=== PATIENT | female | born 1965 ===

== ENCOUNTER 2024-06-14 17:11 | Inpatient (IN) | payer OTHER, SELFPAY ==
--- NOTE | 2024-06-14 17:24 | PTCARENOTE ---
Pt arrived to [facility] via ambulance crew, ambulated to bed independently, gait steady. Full assessment completed. No c/o pain/ nausea at this time. Urinated without issue. Scleras noted to be jaundiced. Bed locked and in the lowest position, safety
maintained. Oriented to room and call ellington. Dr Irving notified of pts arrival, awaiting arrival.
[2024-06-14 17:38] VITALS: BP 103/81
--- NOTE | 2024-06-14 18:44 | HPS.HSE ---
Family Physician
-
Family Physician: Oscar Patiño,DO
Chief Complaint
-
abdominal pain, jaundice
History of Present Illness
59-year-old female past medical history of anxiety, osteoporosis presenting with abdominal bloating discomfort over the past week or so. She recently has been having dark urine and pale-colored stools with constipation. She also noticed that her
breast looked more jaundiced over the past week. She went to her primary care physician who thought that Boniva could have caused this. She denies any fevers or chills. Denies nausea or vomiting. Denies diarrhea.
She denies any history of gallstones or liver problems. She drinks a glass of wine every night.
She was previously taking Aswaganda but has stopped taking this. Denies smoking.
She went to [facility] and had a CT abdomen pelvis which showed choledocholithiasis with CBD stone at the head of the pancreas. She was evaluated by GI recommended for transfer for potential ERCP.
No family history of liver/GI problems.
Medical History
Past Medical History
Past Medical History: Reports Other (anxiety, osteoporosis)
Past Surgical History: Reports None
Social History
Tobacco: Non-smoker
Alcohol: Daily
Drug: None
Family History
Family History: Not pertinent
Allergies / Home Medications
Allergies reflects when Allergies were last updated in [facility].
Home Medications with original date entered in [facility]
Allergy/Medication List:
none
Review of Systems
-
History Source: Patient
A 12 point ROS was completed and negative except as noted: Yes
Constitutional: Reports No Symptoms
EENT: Reports No Symptoms
Respiratory: Reports No Symptoms
Cardiac: Reports No Symptoms
Abdomen/GI: Reports See HPI
: Reports No Symptoms
Musculoskeletal: Reports No Symptoms
Skin: Reports No Symptoms
Neurological: Reports No Symptoms
Endocrine: Reports No Symptoms
Hematologic/Lymphatic: Reports No Symptoms
Psych: Reports No Symptoms
Physical Exam
Vital Signs
Vital Signs
Temp Pulse Resp BP Pulse Ox
98.1 F 55 16 103/81 99
06/14/24 17:38 06/14/24 17:38 06/14/24 17:38 06/14/24 17:38 06/14/24 17:38
Physical Exam
General: Well Developed, Well Nourished and No Apparent Distress
HEENT: NormoCephalic, Moist mucous membranes, Atraumatic and Other (jaundice )
Respiratory: Clear
Cardiac: S1/S2 and Regular Rhythm; No Murmur or Rub
GI: Soft, Non Tender, Non Distended and Normal Bowel Sounds; No Organomegaly
Rectal: Deferred by Provider
Musculoskeletal: No Clubbing, No Cyanosis and No Edema
Skin: No Rash
Neuro: Nonfocal/grossly intact
Data Reviewed
-
Lab Data: Labs Reviewed by me
Old Records: Reviewed
Impression/Plan
-
IMPRESSION:
PLAN:
# Transaminitis/hyperbilirubinemia secondary to choledocholithiasis
-CT disk in the chart and needs to be uploaded
-N.p.o. past midnight
-Clinically appears quite well without any signs of sepsis
-Transferred here for consideration of ERCP
-GI consulted
Anxiety
Osteoporosis
-On Boniva
Full code
DVT prophylaxis�heparin
N.p.o. past midnight
[2024-06-14] MEDS: HEPARIN 5000 UNITS SC (20:29)
[2024-06-14 23:57] VITALS: BP 139/87
[2024-06-15] VITALS (11 sets, daily range): BP systolic 114–130; BP diastolic 63–78
[2024-06-15 06:49] LABS: % Eosinophils 4.8 % (0-6); % Immature Granulocytes 0.3 % (0-0.5); % Lymphocytes 23.8 % (20.5-51.1); % Monocytes 13.6 % (1.7-9.3); % Neutrophils 55.5 % (42.2-75.2); Absolute Basophils 0.1 10^3/uL (0-0.2); Absolute Eosinophils 0.2 10^3/uL (0-0.7); Absolute Lymphocytes 0.8 10^3/uL (1.2-3.4); Absolute Monocytes 0.5 10^3/uL (0.1-0.6); Hematocrit 36.8 % (37.0-47.0); Hemoglobin 12.6 g/dL (12.0-16.0); Mean Corp Hgb Conc. 34.2 g/dL (33.0-37.0); Mean Corpuscular Hgb 31.2 pg (27.0-31.0); Mean Corpuscular Volume 91.1 fL (81.0-99.0); Nucleated Red Blood Cells % 0 %; Platelet Count 241 10^3/uL (130-400); Red Blood Cell Count 4.04 10^6/uL (4.20-5.40); Red Cell Dist. Width 13.3 % (11.5-14.5); White Blood Cell Count 3.5 10^3/uL (4.8-10.8)
--- NOTE | 2024-06-15 07:02 | CON.GI ---
Consultation
-
Date/Time Consultation Performed: 06/15/24
Performing Provider: Jonny Dial MD
Reason for Consultation: jaundice
Medical History
Chief Complaint / HPI
Chief Complaint: Jaundice/abdominal discomfort
History of Present Illness:
The patient is a 59-year-old female with past medical history as noted who presents with increasing jaundice and abdominal discomfort. The symptoms started several weeks ago, initially after having a hamburger, with some upset stomach feeling.
Over the past couple of weeks she has had more vague abdominal symptoms, with constipation and bloating, with decreased appetite. She noticed that her stools were very light color, and went to her PCP though thought this may have been food related.
She then noticed that she was having dark urine and became jaundice, and went to the emergency room yesterday at [facility] where she had a CT scan and transferred to [place]. Unfortunately, we do not have any further records this morning.
The CT scan is still not loaded into the system and have no labs from [facility]. By report there was a CBD stone, though again I do not have the report yet. She otherwise has no other significant medical issues except for anxiety usually
related to healthcare related topics. She denies any chest pain or shortness of breath. She drinks rare alcohol and denies any other hepatotoxic medications.
Past Medical History
Past Medical History: Other (Anxiety, osteoporosis)
Past Surgical History: Other (Tubal ligation)
Social History
Tobacco: Non-Smoker
Alcohol: Occasional
Family History
Family History: Reviewed & Not Pertinent
Allergies / Home Medications
Allergy/AdvReac Type Severity Reaction Status Date / Time
amoxicillin AdvReac Intermediate SEE COMMENT Verified 06/14/24 20:05
�Medication �Instructions �Recorded
Multi For Her PO DAILY 06/14/24
calcium citrate 200 mg PO DAILY 06/14/24
ibandronate 2.5 mg tablet 150 mg PO QMONTH 06/14/24
psyllium seed (sugar) oral powder 1 tbsp PO DAILY 06/14/24
Review of Systems
-
All other systems: A 12 pt ROS was Negative except as stated above in HPI
Vital Signs
Temp Pulse Resp BP Pulse Ox
97.8 F 54 18 139/87 98
06/14/24 23:57 06/14/24 23:57 06/14/24 23:57 06/14/24 23:57 06/14/24 23:57
Physical Exam
Exam
General: NAD, jaundice
HEENT: MMM, icteric, no lymphadenopathy
Heart: Regular, no murmurs
Lungs: CTA bilaterally
Abdomen: normal bowel sounds, soft, no tenderness, no rebound or guarding, no masses, bruits or ascites
Extremeties: no edema
Skin: no rashes
Results
WBC 3.5 10^3/uL (4.8-10.8) L 06/15/24 04:40
Hgb 12.6 g/dL (12.0-16.0) 06/15/24 04:40
Hct 36.8 % (37.0-47.0) L 06/15/24 04:40
MCV 91.1 fL (81.0-99.0) 06/15/24 04:40
Plt Count 241 10^3/uL (130-400) 06/15/24 04:40
Absolute Neuts (auto) 2.0 10^3/uL (1.4-6.5) 06/15/24 04:40
Diagnostic Image Results:
Prior GI Procedures:
EGD:
Colonoscopy:
Assessment / Plan
-
1. Jaundice: With by report CBD stone, though again I do not have her CT scan yet for review. Other reasons for obstruction including malignancy are possible though seem less likely. Again, there was report of CBD obstruction making other
underlying liver disease as a cause of jaundice less likely. At this point we will check CT scan results and await morning labs. Pending this may need MRI for further clarification, and pending all of the above possible ERCP or EUS/ERCP today.
Would continue supportive care for now, but keep n.p.o. in case of possible procedures.
-
-
Thank you for consultation and allowing me to participate in the patient's care. Please call the mission analyst GI physician during the after hours with any questions or concerns.
[2024-06-15 07:31] LABS: ALT (SGPT) 560 U/L (0-35); AST (SGOT) 287 U/L (14-36); Alkaline Phosphatase 288 U/L (38-126); Blood Urea Nitrogen 10 mg/dl (7-17); Carbon Dioxide 26 mmol/L (22-30); Chloride 101 mmol/L (98-107); Glucose 99 mg/dl (70-99); Potassium 4.2 mmol/L (3.5-5.1); Sodium 138 mmol/L (135-145); Total Protein 6.5 g/dl (6.3-8.2); eGFR > 60.00
--- NOTE | 2024-06-15 07:40 | W.PN.HOSP.TC ---
Today's Communication/Plan
-
MRCP +/- ERCP/EUS
Assessment / Plan
Assessment / Plan
Physical exam:
General: Well Developed, Well Nourished and No Apparent Distress. Jaundice
HEENT: Normocephalic, Atraumatic and Moist Mucous Membranes. Icterus
Respiratory: Clear to Auscultation; Negative Wheezes, Rales or Rhonchi
Cardiac: Regular Rhythm and S1/S2
GI: Soft, Nontender and Nondistended
Musculoskeletal: No Clubbing, No Cyanosis and No Edema
Neuro: Awake, Alert and Oriented
Psych: Calm
A/P:
Elevated LFTs:
Trend LFTs
Reviewed CT of the abdomen and pelvis report.
Keep n.p.o.
IV fluids
GI consult appreciated
Hold off on antibiotics but if spikes fevers consider antibiotic coverage
Work up in progress as below
Plan for either MRCP +/- ERCP/EUS
Anxiety:
Discussed with patient and she typically tries without medications but she took some Xanax prior to admission and she feels her anxiety is pretty high.
Will keep her on Xanax low-dose as needed
Leukopenia:
Monitor trend
Osteoporosis:
Biphosphonate as outpatient
DVT prophylaxis:
Heparin SQ
CODE STATUS:
Full code
Anticipated Discharge: 24 - 48 hours
Subjective/Interval History
-
Date of Service: June 15, 2024
Patient denies abdominal pain nausea vomiting. Remains afebrile.
Objective Data
-
Labs:
Laboratory Results
06/15/24
04:40
WBC 3.5 L
Hgb 12.6
Hct 36.8 L
Plt Count 241
Sodium 138
Potassium 4.2
Chloride 101
Carbon Dioxide 26
BUN 10
Creatinine 0.5 L
Glucose 99
Calcium 9.0
Total Bilirubin 7.0 H
AST 287 H
ALT 560 H*
Alkaline Phosphatase 288 H
Vital Signs:
Vital Signs
Temp Pulse Resp BP Pulse Ox
97.8 F 54 18 139/87 98
06/14/24 23:57 06/14/24 23:57 06/14/24 23:57 06/14/24 23:57 06/14/24 23:57
I&O
06/14/24 06/15/24 06/16/24
06:59 06:59 06:59
Intake Total 600 / 600
Balance 600 / 600
[2024-06-15] MEDS: NSS 1000 IV (08:07)
[2024-06-15] MEDS: HEPARIN 5000 UNITS SC ×2 (08:07→19:49)
[2024-06-15 08:16] LABS: Lipase 225 U/L (23-300)
--- NOTE | 2024-06-15 08:46 | W.PN.UPDATE ---
Update Note
Progress Note Update
We did receive records from [facility], I reviewed CT report that showed biliary duct dilation, though not measured, along with pancreatic duct dilation. CT with IV contrast did not show any obvious mass, though is concerned given imaging and
history. I discussed with the patient, will plan MRI today. Pending results of this EUS/ERCP, though may be given availability.
--- NOTE | 2024-06-15 08:56 | W.PN.UPDATE ---
Update Note
Progress Note Update
I discussed with Dr. Yeung, there is a possibility of EUS/ERCP today pending schedule. Will keep n.p.o. for now.
[2024-06-15 09:22] LABS: Direct Bilirubin 5.7 mg/dl (0.0-0.4)
--- NOTE | 2024-06-15 10:42 | CM ---
Met with pt at bedside
Transfer from [facility] - for ERCP
Pt reports she lives alone in a 2 story home;2 steps to enter, 13 steps to 2nd fl
Independent, employed FT, drives
DME - none
SNF/HH - no past hx
Has ride at discharge
PCP - Oscar Patñio
Pharm - [facility] or [facility]
Plan - anticipate home no needs
[2024-06-15] MEDS: SUBLIMAZE 50 MCG IV (17:57)
[2024-06-15] MEDS: ZOFRAN 4 MG IV (17:59)
[2024-06-15] MEDS: XANAX 0.25 MG PO (22:50)
[2024-06-16 03:00] VITALS: BP 123/67
[2024-06-16] MEDS: ULTRAM 25 MG PO (03:03)
[2024-06-16 05:56] LABS: % Basophils 0.5 % (0-2); % Eosinophils 0.2 % (0-6); % Immature Granulocytes 0.3 % (0-0.5); % Lymphocytes 14.6 % (20.5-51.1); % Monocytes 8.5 % (1.7-9.3); % Neutrophils 75.9 % (42.2-75.2); Absolute Lymphocytes 0.9 10^3/uL (1.2-3.4); Absolute Monocytes 0.5 10^3/uL (0.1-0.6); Absolute Neutrophils 4.5 10^3/uL (1.4-6.5); Hematocrit 37.3 % (37.0-47.0); Hemoglobin 12.8 g/dL (12.0-16.0); Mean Corp Hgb Conc. 34.3 g/dL (33.0-37.0); Mean Corpuscular Hgb 31.2 pg (27.0-31.0); Mean Platelet Volume 12.2 fL (7.4-10.4); Nucleated Red Blood Cells % 0 %; Platelet Count 247 10^3/uL (130-400); Red Cell Dist. Width 13.2 % (11.5-14.5); White Blood Cell Count 5.9 10^3/uL (4.8-10.8)
[2024-06-16 06:38] LABS: ALT (SGPT) 547 U/L (0-35); AST (SGOT) 253 U/L (14-36); Albumin 3.9 g/dl (3.5-5.0); Alkaline Phosphatase 285 U/L (38-126); Blood Urea Nitrogen 13 mg/dl (7-17); Calcium 8.8 mg/dl (8.4-10.2); Carbon Dioxide 26 mmol/L (22-30); Chloride 99 mmol/L (98-107); Glucose 100 mg/dl (70-99); Potassium 4.4 mmol/L (3.5-5.1); Sodium 135 mmol/L (135-145); Total Bilirubin 3.3 mg/dl (0.2-1.3); Total Protein 6.3 g/dl (6.3-8.2); eGFR > 60.00
[2024-06-16 07:00] VITALS: BP 123/66
--- NOTE | 2024-06-16 07:16 | W.PN.GI.CBS2 ---
Today's Communication / Plan
-
Please see assessment and plan for details.
Assessment / Plan
-
1. Pancreatic mass: With dilated CBD and PD, though no signs of locally advanced or distant metastasis, status post EUS/FNA and ERCP yesterday with plastic pigtail stent, overall doing well, with no signs of pancreatitis. Preliminary cytology was
suspicious for malignancy. I discussed with the patient at length. At this point she is doing okay, LFTs improving. If she tolerates liquids for breakfast and is okay to DC from GI standpoint. Dr. Yeung will call with pathology when finalized.
Subjective
Subjective
Date of Service: June 16, 2024
Patient feeling okay, some mild epigastric discomfort, though no vomiting, severe pain, fever or chills.
Objective
Data Reviewed
Laboratory Data:
Laboratory Results
06/16/24 04:16
06/16/24 04:16
Laboratory Results
Total Bilirubin 3.3 mg/dl (0.2-1.3) H D 06/16/24 04:16
AST 253 U/L (14-36) H 06/16/24 04:16
ALT 547 U/L (0-35) H* 06/16/24 04:16
Alkaline Phosphatase 285 U/L (38-126) H 06/16/24 04:16
Lipase 225 U/L (23-300) 06/15/24 04:40
Vital Signs and I&O:
Vital Signs
Temp Pulse Resp BP Pulse Ox
98.0 F 54 20 123/67 100
06/16/24 03:00 06/16/24 03:00 06/16/24 03:00 06/16/24 03:00 06/16/24 03:00
I&O
06/15/24 06/16/24 06/17/24
06:59 06:59 06:59
Intake Total 600 / 600 1280 / 1280
Balance 600 / 600 1280 / 1280
Physical Exam
Physical Exam
General: NAD
Abdomen: normal bowel sounds, soft, no tenderness, no masses or bruits, no ascites
--- NOTE | 2024-06-16 08:36 | W.PN.HOSP.TC ---
Today's Communication/Plan
-
Discharge planning today.
Assessment / Plan
Assessment / Plan
Physical exam:
General: Well Developed, Well Nourished and No Apparent Distress. Jaundice
HEENT: Normocephalic, Atraumatic and Moist Mucous Membranes. Icterus
Respiratory: Clear to Auscultation; Negative Wheezes, Rales or Rhonchi
Cardiac: Regular Rhythm and S1/S2
GI: Soft, Nontender and Nondistended
Musculoskeletal: No Clubbing, No Cyanosis and No Edema
Neuro: Awake, Alert and Oriented
Psych: Calm
A/P:
Elevated LFTs due to pancreatic mass:
Trended LFTs
Reviewed CT of the abdomen and pelvis report.
GI consult appreciated
ERCP and EUS revealed pancreatic mass pending pathology report
Advance to low-fat diet today if tolerates can go home.
GI cleared for discharge
Anxiety:
Discussed with patient and she typically tries without medications but she took some Xanax prior to admission and she feels her anxiety is pretty high.
Will keep her on Xanax low-dose as needed
Leukopenia:
Monitor trend
Osteoporosis:
Biphosphonate as outpatient
DVT prophylaxis:
Heparin SQ
CODE STATUS:
Full code
Anticipated Discharge: Today
Subjective/Interval History
-
Date of Service: June 16, 2024
No abdominal pain nausea or vomiting. Tolerating food.
Objective Data
-
Labs:
Laboratory Results
06/16/24
04:16
WBC 5.9
Hgb 12.8
Hct 37.3
Plt Count 247
Sodium 135
Potassium 4.4
Chloride 99
Carbon Dioxide 26
BUN 13
Creatinine 0.5 L
Glucose 100 H
Calcium 8.8
Total Bilirubin 3.3 H D
AST 253 H
ALT 547 H*
Alkaline Phosphatase 285 H
Vital Signs:
Vital Signs
Temp Pulse Resp BP Pulse Ox
98.3 F 63 16 123/66 98
06/16/24 07:00 06/16/24 07:00 06/16/24 07:00 06/16/24 07:00 06/16/24 07:00
I&O
06/15/24 06/16/24 06/17/24
06:59 06:59 06:59
Intake Total 600 / 600 1280 / 1280
Balance 600 / 600 1280 / 1280
[2024-06-16] MEDS: HEPARIN 5000 UNITS SC (09:00)
[2024-06-16 11:00] VITALS: BP 131/68
--- NOTE | 2024-06-16 12:19 | W.DCSUMMARY ---
Discharge Summary
Discharge Data
Date of Admission: 06/14/24
Date of Discharge: 06/16/24
-
Pending Results: No
Hospital Course
Patient 59 years old female who initially presented to [facility] and she was transferred to for jaundice and abdominal discomfort. Patient had an MRCP and it showed severe intrahepatic and extrahepatic bile duct dilatation and severe main
pancreatic ductal dilatation. Findings were suspicion for an occult obstructing pancreatic hypermetabolic mass. Patient underwent ERCP and EUS with fine-needle aspiration and he was found to have a pancreatic mass and biopsy taken. LFTs have
trended down slightly and overall remained stable and she has been able to tolerate diet without any problems. GI cleared her for discharge and will follow-up pathology results as outpatient when finalized. Patient will be discharged in relatively
stable condition today.
Discharge duration: 32 minutes
Discharge Plan
-
Patient Disposition: Home (Routine Discharge)
Discharge Diagnosis/Procedures: Elevated liver function tests. Pancreatic mass.
Diet: Low Fat
Activity: As tolerated
Blood Work: CBC, CMP within 1 week by either PCP or GI.
Referrals:
Rayshawn Dial MD [Active] - in one to two weeks
Christian Yeung MD [Active] - in one to two weeks
Oscar Patiño DO [Family Provider] - in less than 1 week
Prescriptions:
New
ibuprofen 200 mg capsule
400 mg PO Q8H PRN (Reason: Pain) Qty: 10 0RF
alprazolam [Xanax] 0.25 mg tablet
0.25 mg PO BID PRN (Reason: anxiety) Qty: 14 0RF
Continued
ibandronate 2.5 mg Tablet
150 mg PO QMONTH
Multi For Her tablet
PO DAILY
Rx Instructions:
multivitiman for women
calcium citrate 200 mg (950 mg) Tablet
200 mg PO DAILY
psyllium seed (sugar) Powder
1 tbsp PO DAILY
Discharge Orders:
Discharge Patient (As Directed); Ordered 06/16/24
Ordered By: Jack Pierre
Discharge Date and Time
Discharge Date/Time: 06/16/24 15:09
Print Language: ESTONIAN
--- NOTE | 2024-06-16 12:31 | CM ---
Pt for discharge today
Met with pt
Has ride home with friends. Plans to go home to friends house
Plan - home no needs
[2024-06-16 14:05] VITALS: BP 128/66
== END 2024-06-16 15:09 | disposition home or self-care (01) | DRG 436 ==
LOC: 2 SOUTH 17:11
PROVIDERS: Internal Medicine Gastroenterology; ADMITTING PHYSICIAN Hospitalist; ATTENDING PHYSICIAN Hospitalist; CONSULT PHYSICIAN Internal Medicine Gastroenterology; FAMILY PHYSICIAN Anesthesiology
PROC: 0F798DZ Dilation of Common Bile Duct with Intraluminal Device, Via Natural or Artificial Opening Endoscopic (ICD-10-PCS; 2024-06-14)
DX: C25.0 Malignant neoplasm of head of pancreas (principal); K80.51 Calculus of bile duct without cholangitis or cholecystitis with obstruction; K82.1 Hydrops of gallbladder; F41.9 Anxiety disorder, unspecified; M81.0 Age-related osteoporosis without current pathological fracture
CPT/HCPCS: 88172; 88173; 88305; 74183; 74330; 76000; 80053; 82248; 83690; 85025; 88177; 88342; A9575; C1769; C2617